=== PATIENT | female | born 1995 | race African-American/Black ===

== ENCOUNTER 2017-12-07 23:31 | Emergency (ER) | payer MEDICAID ==
[~2017-12-07] VITALS: Ht 165.1 cm; Wt 123.4 kg
[2017-12-08 00:02] VITALS: Ht 165.1 cm; Wt 123.4 kg
[2017-12-08 00:59] VITALS: BP 135/78
== END 2017-12-08 00:59 | disposition left against medical advice (07) ==
LOC: ED 23:31
DX: Z53.21 Procedure and treatment not carried out due to patient leaving prior to being seen by health care provider (principal)